=== PATIENT | female | born 1980 | race African-American/Black ===

== ENCOUNTER 2019-08-05 08:46 | Emergency (ER) | payer OTHER, SELFPAY ==
[2019-08-05 09:26] LABS: #Basophils 0.1 thou/uL (0.0-0.2); #Eosinphils 0.2 thou/uL (0.0-0.7); #Lymphocytes 2.2 thou/uL (1.20-3.40); #Monocytes 0.6 thou/uL (0.11-0.59); #Neutrophils 5.3 thou/uL (1.40-6.50); %Basophils 0.6 % (0.0-1.0); %Eosinophils 2.1 % (0.0-10.0); %Lymphocytes 26.5 % (21.0-51.0); %Monocytes 7.3 % (0.0-10.0); %Neutrophils 63.5 % (42.0-75.0); Mean Corpuscular HGB CONC 31.5 g/dL (32.0-36.0); Mean Corpuscular Hemoglobin 27.6 pg (27.0-31.0); Mean Corpuscular Volume 87.5 fL (78.0-98.0); Mean Platelet Volume 4.9 fL (7.4-10.4); Platelet Count 439 thou/uL (130-400); RBC Distribution Width 12.3 % (11.5-14.5); White Blood Cell (WBC) Count 8.4 thou/uL (4.8-10.8)
[2019-08-05 09:43] LABS: Anion Gap 12 mmol/L (10-20); BUN (Urea Nitrogen) 6 mg/dL (7.0-18.7); Calc. Creatinine Clearance 0 mL/min (70-130); Calcium 9.5 mg/dL (7.8-10.44); Carbon Dioxide 27 mmol/L (22-29); Chloride 104 mmol/L (98-107); Estimated GFR-MDRD Greater than 90; Glucose 84 mg/dL (70-105); Potassium 3.7 mmol/L (3.5-5.1); Sodium 139 mmol/L (136-145)
[2019-08-05] MEDS ORDERED: Ketorolac Tromethamine 30 MG/ML VIAL ONE (09:49)
[2019-08-05] MEDS ORDERED: Metoclopramide HCl 10 MG/2 ML VIAL ONE (09:49)
[2019-08-05] MEDS ORDERED: diphenhydrAMINE 50 MG/ML VIAL ONE (09:49)
[2019-08-05 09:51] LABS: Pregnancy Test - Urine (BHCG) Negative (Negative); Pregu Control Background? CLEAR/WHITE (CLR/WHITE); Pregu Control Bar Appear? YES (CONTROL BAR)
--- NOTE | 2019-08-05 09:57 | CT ---
CT BRAIN NONCONTRAST: DATE: 08/05/2019 HISTORY: 38-year-old female with headache FINDINGS: There is no evidence of acute intra-axial or extra-axial hemorrhage. There is no midline shift or any other mass effect. There is no extra-axial fluid collection. The ventricles are normal in size and configuration. The tympanomastoid cavities, and the upper portions of the paranasal sinuses included in these images, are grossly clear. Calvarium is intact. IMPRESSION: Normal.
--- NOTE | 2019-08-05 11:54 | CT ---
CT FACE WITH IV CONTRAST: Date: 08/05/19 INDICATION: History of left-sided headaches. Dental disease COMPARISON: None. FINDINGS: Visualized intracranial contents appear within normal limits. Paranasal sinuses appear clear. Mastoid air cells are clear. Dental amalgam limits evaluation of the oral cavity. A few shotty appearing lym ph nodes are seen within the upper neck. Parapharyngeal space appears preserved. Visualized orbits ar e within normal limits. Visualized palatine tonsils appear within normal limits. Visualized aspect of the submandibular, parotid, and thyroid glands appear within normal limits. No definite periosseous abscess is grossly evident. IMPRESSION: 1. No definite periosseous abscess demonstrated. Dental amalgam slightly limits evaluation of the or al cavity. 2. No significant paranasal sinus disease. 3. A few shotty appearing lymph nodes seen within the upper neck. 4. No acute osseous abnormality demonstrated. POS: OFF
== END 2019-08-05 10:38 | disposition home or self-care (01) ==
LOC: NAV ERS 08:46
DX: R51 Headache (principal); K02.9 Dental caries, unspecified; I10 Essential (primary) hypertension; Z79.899 Other long term (current) drug therapy
CPT/HCPCS: 36415; 70450; 70487; 80048; 81025; 85025; 96374; 96375; J1200; J1885; J2765

== ENCOUNTER 2021-01-05 20:31 | Emergency (ER) | payer SELFPAY ==
[2021-01-05] MEDS ORDERED: Morphine 4 MG/ML VIAL ONE (20:57)
[2021-01-05] MEDS ORDERED: predniSONE 20 MG TAB ONE (20:57)
== END 2021-01-05 21:44 | disposition home or self-care (01) ==
LOC: NAV ERS 20:31
DX: M54.5 Low back pain (principal); I10 Essential (primary) hypertension; Z79.899 Other long term (current) drug therapy; X50.1XXA Overexertion from prolonged static or awkward postures, initial encounter
CPT/HCPCS: 96372; 99283; J2270; J7512

== ENCOUNTER 2022-11-27 19:39 | Emergency (ER) | payer BC ==
[2022-11-27 20:11] LABS: Hemoglobin 13.9 g/dL (12.0-16.0); Mean Corpuscular Hemoglobin 28.8 pg (27.0-31.0); Mean Corpuscular Volume 90.2 fl (78.0-98.0); Mean Platelet Volume 5.6 fL (7.4-10.4); Platelet Count 455 10x3/uL (130-400); RBC Distribution Width 12.3 % (11.5-14.5); Red Blood Cell (RBC) Count 4.81 mill/uL (4.20-5.40); White Blood Cell (WBC) Count 10.2 10x3/uL (4.8-10.8)
[2022-11-27 20:12] LABS: MDiff Complete? YES
[2022-11-27 20:13] LABS: Manual Diff?? YES
[2022-11-27 20:23] LABS: Eosinophils 2 % (0-10); Lymphocytes 36 % (21-51); Monocytes 3 % (0-10); Neutrophil 57 % (42-75); Reactive Lymphocytes 2 % (0-10); Vacuoles SLIGHT
[2022-11-27 20:24] LABS: Toxic Granulation SLIGHT
[2022-11-27 20:31] LABS: ALT (SGPT) 19 U/L (8-55); AST (SGOT) 21 U/L (5-34); Albumin 3.8 g/dL (3.5-5.0); Alkaline Phosphatase 58 U/L (40-110); Anion Gap 15 mmol/L (10-20); BUN (Urea Nitrogen) 8 mg/dL (7.0-18.7); Bilirubin, Total 0.4 mg/dL (0.2-1.2); CK (CPK) 116 U/L (29-168); Calc. Creatinine Clearance 0 mL/min (70-130); Calcium 9.4 mg/dL (7.8-10.44); Carbon Dioxide 22 mmol/L (22-29); Chloride 103 mmol/L (98-107); Estimated GFR 90; Globulin 4.8 g/dL (2.4-3.5); Glucose 125 mg/dL (70-105); Lipase 11 U/L (8-78); Potassium 3.4 mmol/L (3.5-5.1); Protein, Total 8.6 g/dL (6.0-8.3); Sodium 137 mmol/L (136-145)
[2022-11-27 20:33] LABS: Bilirubin Negative (Negative); Blood, Urine Large (Negative); Clarity Clear (Clear); Glucose, Urine (Dipstick) Negative (Negative); Ketone, Urine Negative (Negative); Leukocyte Small (Negative); Nitrite Negative (Negative); Protein, Urine (Dipstick) Trace mg/dL (Neg-Trace); Urobilinogen 0.2 mg/dL (Less than 2); pH, Urine 7.5 (5.0-9.0)
[2022-11-27 20:39] LABS: Bacteria/HPF 1+ HPF (None Seen); RBC/HPF 0-3 HPF (0-3); Squamous Epithelial 0-3 HPF (0-3); WBC/HPF 0-3 HPF (0-3)
[2022-11-27 20:42] LABS: Amphetamine Detected (NotDetected); Barbiturates Screen Not Detected (NotDetected); Benzodiazepine Screen Not Detected (NotDetected); Cocaine Metabolite Screen Not Detected (NotDetected); Medtox Control Line Valid? VALID (VALID); Methadone Not Detected (NotDetected); Methamphetamine Not Detected (NotDetected); Opiate Screen Not Detected (NotDetected); Oxycodone Screen Not Detected (NotDetected); Phencyclidine (PCP) Not Detected (NotDetected); THC/Cannabinoid Screen Not Detected (NotDetected); Tricyclic Screen Not Detected (NotDetected)
[2022-11-27] MEDS ORDERED: Ketorolac Tromethamine 30 MG/ML VIAL ONE (21:09)
[2022-11-27 23:15] LABS: Troponin I Less than 0.010 ng/mL (< 0.028)
== END 2022-11-27 23:35 | disposition home or self-care (01) ==
LOC: NAV ERS 19:39
DX: S46.812A Strain of other muscles, fascia and tendons at shoulder and upper arm level, left arm, initial encounter (principal); I10 Essential (primary) hypertension; X58.XXXA Exposure to other specified factors, initial encounter; Z79.899 Other long term (current) drug therapy
CPT/HCPCS: 36415; 71045; 80053; 80306; 81003; 81015; 82550; 83690; 84484; 85025; 87086; 93005; 96374; J1885